=== PATIENT | female | born 1970 | race Two or more races ===

== ENCOUNTER 2019-02-27 08:18 | Emergency (ER) | payer SELFPAY ==
[~2019-02-27] VITALS: Ht 157.5 cm; Wt 56.7 kg
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
[2019-02-27] MEDS ORDERED: LIDOCAINE 1% PF 2 ML VIAL. INJ ONE (09:15)
[2019-02-27] MEDS ORDERED: DIPHTH,PERTUSS(ACELL),TET TOX 0.5 ML DISP.SYRIN. VAX IM ONE (09:30)
--- NOTE | 2019-02-27 09:32 | RAD ---
Three-view right hand study Clinical indications: Right hand swelling dorsal surface of the second through fourth fingers. FINDINGS: No acute fracture or dislocation or lytic process is seen. IMPRESSION: No acute fracture. Electronically signed by: Ck Michelle MD (02/27/2019 9:29 AM) [facility]
[2019-02-27 10:44] VITALS: BP 111/75
== END 2019-02-27 10:45 | disposition home or self-care (01) ==
LOC: ER 08:18 → MERGE 08:18 → ER 10:45
DX: S01.511A Laceration without foreign body of lip, initial encounter (principal); S69.81XA Other specified injuries of right wrist, hand and finger(s), initial encounter; K08.89 Other specified disorders of teeth and supporting structures; M54.2 Cervicalgia; M54.6 Pain in thoracic spine; Y08.89XA Assault by other specified means, initial encounter; Y93.89 Activity, other specified; Y92.89 Other specified places as the place of occurrence of the external cause; Y99.8 Other external cause status
CPT/HCPCS: 12013; 73130; 90471; 90715; 99284

== ENCOUNTER 2019-03-14 16:23 | Emergency (ER) | payer SELFPAY ==
[~2019-03-14] VITALS: Ht 152.4 cm; Wt 56.7 kg
[2019-03-14 16:32] VITALS: BP 111/75
--- NOTE | 2019-03-14 16:54 | PHYS DOC ---
Past Medical History Past Medical History: Other Additional Past Medical Histor: EPILEPSY CHILD Past Surgical History: Alcohol Use: None Drug Use: None Adult General Chief Complaint Chief Complaint: SUTURE/STAPLE REMOVAL [facility] HPI Patient is a 48 year old female presents to the ED for suture removal. States she has sutures placed in her mouth 15 days ago and they were supposed to dissolve but have not. States she would like them taken out. Denies fever, dehiscence, n/v, erythema or abscess. Review of Systems Review of Systems Constitutional: Denies fever or chills [] Eyes: Denies change in visual acuity, redness, or eye pain [] HENT: Denies nasal congestion or sore throat [] Respiratory: Denies cough or shortness of breath [] Cardiovascular: No additional information not addressed in HPI [] GI: Denies abdominal pain, nausea, vomiting, bloody stools or diarrhea [] : Denies dysuria or hematuria [] Musculoskeletal: Denies back pain or joint pain [] Integument: Denies rash or skin lesions [] Neurologic: Denies headache, focal weakness or sensory changes [] Endocrine: Denies polyuria or polydipsia [] All other systems were reviewed and found to be within normal limits, except as documented in this note. Allergies Allergies Allergies Coded Allergies Type Severity Reaction Last Updated Verified No Known Drug Allergies 03/11/19 No Physical Exam Physical Exam Constitutional: Well developed, well nourished, no acute distress, non-toxic appearance. [] HENT: Normocephalic, atraumatic. 3 sutures intact to lower inner lip. C/D/I. No signs of infection, drainage or dehiscence. Skin: Warm, dry, no erythema, no rash. [] Back: No tenderness, no CVA tenderness. [] Extremities: No tenderness, no cyanosis, no clubbing, ROM intact, no edema. [] Neurologic: Alert and oriented X 3, normal motor function, normal sensory function, no focal deficits noted. [] Psychologic: Affect normal, judgement normal, mood normal. [] Current Patient Data Vital Signs Vital Signs Date Time Temp Pulse Resp B/P (MAP) Pulse Ox O2 Delivery O2 Flow Rate FiO2 03/14/19 16:32 98.7 82 18 111/75 (87) 99 Room Air 98.7 EKG EKG [] Radiology/Procedures Radiology/Procedures [] Course & Med Decision Making Course & Med Decision Making Pertinent Labs and Imaging studies reviewed. (See chart for details) [] Sutures removed. No complications. Dragon Disclaimer Dragon Disclaimer This electronic medical record was generated, in whole or in part, using a voice recognition dictation system. Departure Departure Impression: Primary Impression: Visit for suture removal Disposition: HOME, SELF-CARE Condition: IMPROVED Referrals: NO PCP (PCP) GUNJAN MOLINA MD Patient Instructions: Suture Removal KANDICE HYMAN Mar 14, 2019 16:54
== END 2019-03-14 17:01 | disposition home or self-care (01) ==
LOC: ER 16:23
DX: S01.512D Laceration without foreign body of oral cavity, subsequent encounter (principal); Z98.890 Other specified postprocedural states; X58.XXXD Exposure to other specified factors, subsequent encounter
CPT/HCPCS: 99281